=== PATIENT | female | born 1960 | race Caucasian/White ===

== ENCOUNTER 2021-05-23 11:08 | Emergency (ER) | payer OTHER ==
[~2021-05-23] VITALS: Ht 157.5 cm; Wt 67.6 kg
[2021-05-23] MEDS ORDERED: ZYRTEC10 M3 PO (11:43)
[2021-05-23] MEDS ORDERED: SINGULAIR10 MG PO (11:44)
[2021-05-23] MEDS ORDERED: TOBRAMYCIN-DEXAM5 ML OPHT (12:07)
== END 2021-05-23 12:32 | disposition home or self-care (01) ==
LOC: ER 11:08
DX: S05.02XA Injury of conjunctiva and corneal abrasion without foreign body, left eye, initial encounter (principal); X58.XXXA Exposure to other specified factors, initial encounter; Y93.9 Activity, unspecified; Y92.9 Unspecified place or not applicable